=== PATIENT | male | born 1990 | race Caucasian/White ===

== ENCOUNTER 2017-03-13 07:56 | Day surgery (SDC) | payer OTHER ==
[~2017-03-13] VITALS: Ht 180.3 cm; Wt 122.0 kg
[~2017-03-13 07:56] MED LIST: APIX5TAB PO; RIVA15TA PO
[2017-03-13 08:54] VITALS: Ht 180.3 cm; Wt 122.0 kg
[2017-03-13 09:17] VITALS: BP 129/74; PULSE 74; RESP 20
[2017-03-13] MEDS ORDERED: LIDOCAINE 1% (MDV) 20 ML INJ ONE (11:11)
[2017-03-13] MEDS ORDERED: FENTAnyl 50 MCG/ML VIAL ONE (11:11)
[2017-03-13] MEDS ORDERED: MIDAZOLAM 1 MG/ML 2 ML INJ ONE (11:11)
[2017-03-13] MEDS ORDERED: IODIXANOL LOCM 100 ML BTL ONE (11:11)
--- NOTE | 2017-03-13 11:47 | OPR ---
Date/Time of Note Date/Time of Note DATE: 03/13/17 TIME: 11:42 Operative Report Procedure Date: Mar 13, 2017 Preoperative Diagnosis Right lower extremity DVT Postoperative Diagnosis Same Operation Performed Right lower extremity venogram Central venogram Interpositions revision of the venogram Ultrasound guidance access into the central vein Surgeon: ALISSA EMERSON MD Anesthesia Type: other Estimated Blood Loss: none Transfusion Required: no Specimen: none Pt Condition Post Procedure: stable Disposition: PACU Indications DVT Operative\Procedure Findings Dictated Procedure Description Patient was placed in supine position prepped and draped in usual sterile fashion under ultrasonic guidance access was gained in the right pedal vein Guidewire was advanced through without any difficulty 4 Bulgarian sheath was advanced into the vein and a venogram was done Interpretation supervision of the venogram revealed 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
[2017-03-13 11:58] VITALS: BP 111/70; PULSE 63; RESP 16
== END 2017-03-13 12:15 | disposition home or self-care (01) ==
LOC: SDS 07:56
PROVIDERS: ATTEND Thoracic Surgery (Cardiothoracic Vascular Surgery)
DX: I82.401 Acute embolism and thrombosis of unspecified deep veins of right lower extremity (principal); F17.200 Nicotine dependence, unspecified, uncomplicated
CPT/HCPCS: 36005; J2250; J3010; Q9967; Z7610

== ENCOUNTER 2017-07-03 11:07 | Emergency (ER) | payer OTHER ==
[~2017-07-03] VITALS: Ht 175.3 cm; Wt 129.1 kg
[2017-07-03 11:10] VITALS: Ht 175.3 cm; Wt 129.1 kg
--- NOTE | 2017-07-03 12:54 | RADRPT ---
PROCEDURE: US left lower extremity venous CLINICAL INDICATION: Left calf pain TECHNIQUE: Multiple longitudinal and transverse images of the left lower extremity veins were [place] with lopez scale and color Doppler imaging. 2D grayscale measurements with compression, color Do ppler flow, and augmentation was performed. The calf veins were interrogated as well. COMPARISON: Left lower extremity venous Doppler ultrasound 10/27/2015 FINDINGS: The left common femoral, femoral, and popliteal veins are patent and without evidence of filling def ects. All these veins have normal spectral wave forms, fill with color signal, are compressible, an d have augmentation of blood flow with compression. The visualized left upper posterior tibial and peroneal veins are patent and without evidence of nery ling defects; these veins are compressible and fill with color signal. Sonographic evaluation of the left calf where the patient complains of pain reveals a superficial va ricose vein containing luminal signal and is not compressible. IMPRESSION: 1. No evidence of deep vein thrombosis involving the left lower extremity 2. Left calf superficial varicose vein contains luminal signal and is not compressible; this findin g is most compatible with superficial vein thrombosis RPTAT: TT Physician Lucius Date Time Electronically viewed and signed by Physician Lucius on 07/03/2017 12:53 GINA/
--- NOTE | 2017-07-03 13:06 | ERD ---
ER Documentation Chief Complaint Chief Complaint left leg redness and pain x 1 day, hx dvt on the right leg HPI 18-year-old male complains of some pain behind his left knee for the last day. He denies any history of trauma. Patient's history is significant for DVT approximately 1 year ago in the right calf. He took anticoagulation for 1 year. He has no other history of DVT or pulmonary embolism. Does not remember ever being diagnosed with hypercoagulable state. Denies any prolonged car rides , recent illnesses. ROS All systems reviewed and are negative except as per history of present illness. Medications Home Meds No Active Prescriptions or Reported Meds Allergies Allergies: Coded Allergies: No Known Allergy (Unverified , 03/13/17) PMhx/Soc Medical and Surgical Hx: pt denies Surgical Hx History of Surgery: No Anesthesia Reaction: No Hx Neurological Disorder: No Hx Respiratory Disorders: No Hx Cardiac Disorders: No Hx Psychiatric Problems: No Hx Miscellaneous Medical Probl: Yes (Hx of DVT on the Right calf) Hx Alcohol Use: Yes (Ocassional drinker) Hx Substance Use: No Hx Tobacco Use: Yes (stopped 2 yrs ago) Smoking Status: Former smoker Physical Exam Vitals Vital Signs Date Time Temp Pulse Resp B/P Pulse Ox O2 Delivery O2 Flow Rate FiO2 07/03/17 11:10 99.2 89 18 147/69 98 Physical Exam Const: [] Alert, [id number]. Head: Atraumatic Eyes: Normal Conjunctiva ENT: Normal External Ears, Nose and Mouth. Neck: Full range of motion..~ No meningismus. Resp: Clear to auscultation bilaterally Cardio: Regular rate and rhythm, no murmurs Abd: Soft, non tender, non distended. Normal bowel sounds Skin: No petechiae or rashes Back: No midline or flank tenderness Ext: No cyanosis, or edema. Tenderness in the right posterior popliteal area with some superficial varicosities without erythema, warmth. There is no gross Homans sign. Neur: Awake and alert Psych: Normal Mood and Affect Procedures/MDM Left lower extremity Doppler shows no evidence of DVT. The superficial thrombosed varicose veins. Presents with left popliteal pain with signs of thrombosed varicose veins. There is no evidence of DVT. Patient does not have any signs or symptoms to suggest pulmonary embolism no evidence of cellulitis or additional emergent causes of presenting complaints. He was treated with instructions for elevation and warm compresses and primary care follow-up and return precautions for worsening swelling, pain, shortness breath, new worsening symptoms or primary care doctor. Departure Diagnosis: Primary Impression: Varicose vein of leg Condition: Stable Patient Instructions: Varicose Veins Additional Instructions: No DVT seen today. Only superficial varicose vein noted on ultrasound. Recheck for worsening swelling, new or worsening symptoms-fever, shortness of breath otherwise with primary care doctor. Apply warm compresses at home. CAMRYN MTZ MD Jul 03, 2017 13:06
== END 2017-07-03 13:21 | disposition home or self-care (01) ==
LOC: FTE 11:07
DX: I83.92 Asymptomatic varicose veins of left lower extremity (principal); Z87.891 Personal history of nicotine dependence
CPT/HCPCS: 93971; Z7502; 99282